=== PATIENT | female | born 1965 | race Caucasian/White ===

== ENCOUNTER 2017-10-04 06:34 | Emergency (ER) | payer OTHER ==
[~2017-10-04 06:34] MED LIST: ACAMPROSATE CA333 M1 PO; FOLIC ACID1 M1 PO; ONE DAILY MULT1 EAC2 PO; PERCOCET 325 MG1 TA2 PO; VITAMIN B-1100 MG PO; VOLTAREN100 GM TOP
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
[2017-10-04 07:26] LABS: ABSOLUTE BASOPHIL COUNT 0.1 /CUMM (0.0-0.2); ABSOLUTE EOSINOPHIL COUNT 0.2 /CUMM (0.0-0.7); ABSOLUTE GRANULOCYTE CT 1.8 /CUMM (1.4-6.5); ABSOLUTE LYMPH COUNT 1.7 /CUMM (1.2-3.4); ABSOLUTE MONOCYTE COUNT 0.6 /CUMM (0.10-0.60); BASOPHIL % 1.4 % (0.0-2.0); EOSINOPHIL % 4.9 % (0-5); GRANULOCYTE % 40.5 % (42.2-75.2); HEMATOCRIT 39.6 % (37-47); MEAN CORPUSCULAR HGB 32.8 PG (27.0-31.0); MEAN CORPUSCULAR HGB CONC 34.1 G/DL (33.0-37.0); MEAN CORPUSCULAR VOLUME 96.1 FL (81.0-99.0); MEAN PLATELET VOLUME 6.9 FL (7.4-10.4); PLATELET COUNT 176 /CUMM (130-400); RBC DISTRIBUTION WIDTH 14.7 % (11.5-14.5); RED BLOOD CELL CT 4.12 /CUMM (4.20-5.40); WHITE BLOOD CELL COUNT 4.3 /CUMM (4.8-10.8)
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
[2017-10-05 17:37] VITALS: BP 128/81
[2017-10-05] MEDS ORDERED: ATIVAN1 M1 PO (18:00)
[2017-10-05] MEDS ORDERED: MACROBID 100 M100 MG PO (18:05)
== END 2017-10-05 18:23 ==
LOC: ERH 06:34
PROVIDERS: Emergency Medicine
DX: F32.9 Major depressive disorder, single episode, unspecified (principal); F10.10 Alcohol abuse, uncomplicated
CPT/HCPCS: 80307; 81001; G0463; G0480

== ENCOUNTER 2017-10-29 21:43 | Emergency (ER) | payer OTHER ==
[~2017-10-29] VITALS: Ht 160 cm; Wt 60.3 kg
[~2017-10-29 21:43] MED LIST changes: +ATIVAN1 M1 PO; +MACROBID 100 M100 MG PO
--- NOTE | 2017-10-29 21:57 | ED AMS/SEIZURE/WEAK/DIZZY ---
History of Present Illness General Chief Complaint: ETOH/Drug Related Complaint Stated Complaint: BIBA +ETOH, DRUG USE ?COMBATIVE Source: patient Exam Limitations: no limitations Vital Signs & Intake/Output Vital Signs & Intake/Output Vital Signs Date Time Temp Pulse Resp B/P B/P Pulse O2 O2 Flow FiO2 Mean Ox Delivery Rate 10/30 1131 97.0 104 136/79 100 Room Air 10/30 1000 97.0 98 16 114/61 100 Room Air 10/30 0842 98.0 95 20 143/98 10/30 0622 97.8 93 20 107/64 96 Room Air 10/30 0350 99.3 79 15 98/57 97 Room Air 10/30 0040 99 18 105/62 99 Room Air 10/29 2224 Room Air 10/29 2152 98.7 101 16 121/73 96 Room Air ED Intake and Output 10/30 0000 10/29 1200 Intake Total 0 Output Total 0 Balance 0 Intake, Oral 0 Output, Urine 0 Patient 133 lb Weight Weight Reported by Patient Measurement Method Allergies Coded Allergies: No Known Allergies (12/27/16) Reconcile Medications LORazepam (Ativan) 1 MG TAB 2 TAB PO TID PRN ALCOHOL WITHDRAWAL DAY 1: 2 TAB 3X/DAY DAY 2: 1 TAB 4X/DAY DAY 3: 1 TAB 3X/DAY DAY 4: 1 TAB 2X/DAY DAY 5: 1 TAB Nitrofurantoin Monohyd/M-Cryst (Macrobid 100 MG Capsule) 100 MG CAPSULE 1 CAP PO BID uti with food Triage Note: [facility] FROM HOME. PER EMS BOYFRIEND CALLED BECAUSE PT DRANK A LITER OF VODKA AND HE WANTED HER TO BE EVALUATE. EMS ARRIVED AND PT WAS UNCOOPERATIVE AND SLURRING HER WORDS. EMS HAD TO RESTRAIN PT FOR HER SAFETY AND THEIRS BECAUSE PT WAS TRYING TO ELOPE AND WAS COMBATIVE AT TIMES. PT SLURRING HER WORDS BUT A&OX3 AT THIS TIME. PT DROWSY BUT AROUSABLE. PT CALM AT THIS TIMES AND EMS RESTRAINTS REMOVED. PT RESTING ON STRETCHER. PT DENIES SI/HI. PT C/O BLADDER PAIN BUT STATES SHE HAS A UTI. PT DENIES ANY OTHER COMPLAINTS. PT ON A PEER. PER [employer] PT ALSO TOOK 1MG OF BOYFRIEND'S CLONZEPAM. Triage Nurses Notes Reviewed? yes Onset: Gradual Duration: hour(s): Timing: recent history Injury Environment: home Severity: moderate Associated Symptoms: lethargy HPI: 52 yo woman h/o alcoholism presents after a concern for an overdose. The police share that she was trying to detox herself with her boyfriends benzos. Today, she relapsed, taking an unknown amount of clonazepam 1mg tabs as well as drinking an unknown amount of alcohol. Per the police, there were several empty bottles of liquor in the home. The police state that it was unclear if there was a intent for self-harm. No concern for injury. The patient presents quite somnolent, but arousable, not answering questions coherently. (Brenna MEDINA,Jon Vera) Past History Travel History Traveled to [place] past 21 day No Medical History Any Pertinent Medical History? 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 No (Brenna MEDINA,Jon Vera) Review of Systems Review of Systems Constitutional: Denies: see HPI. (Brenna MEDINA,Jon Vera) Physical Exam Physical Exam General Appearance: mild distress Comments: Review of Systems - except as otherwise noted in HPI Review of Systems Constitutional:no symptoms. EENTM:no symptoms. Respiratory:no symptoms. Cardiovascular:no symptoms. GI:no symptoms. Genitourinary:no symptoms. Musculoskeletal:no symptoms. Skin:no symptoms. Neurological/Psychological:no symptoms. Hematologic/Endocrine:no symptoms. Immunologic/Allergic:no symptoms. All Other Systems: Reviewed and Negative Physical Exam Physical Exam General Appearance: well developed/nourished, lethargic, easily arousable Head: atraumatic, normal appearance Eyes: Bilateral: normal appearance. Ears, Nose, Throat: normal pharynx, normal ENT inspection Neck: normal inspection, supple, full range of motion Respiratory: normal breath sounds, chest non-tender, no respiratory distress, quiet respiration, lungs clear Cardiovascular: regular rate/rhythm Gastrointestinal: normal bowel sounds, soft, non-tender, no organomegaly Back: normal inspection, normal range of motion Extremities: normal inspection, normal capillary refill, normal range of motion, no edema Neurologic/Psych: no motor/sensory deficits, lethargic easily arousable, speaks in complete sentences but with scattered throughts, slurred speech. Skin: intact, normal color, warm/dry Core Measures ACS in differential dx? No CVA/TIA Diagnosis No Sepsis Present: No Sepsis Focused Exam Completed? No (Brenna MEDINA,Jon Vera) Progress Differential Diagnosis: alcohol intoxication, benzo overdose vs other. Plan of Care: Orders Procedure Date/time Status Regular Diet 10/30 B Active Patient Safety Monitor 10/30 0847 Active Add-on Test (ER Only) 10/30 706 Active ACETOMINOPHEN 10/30 2219 Complete SALICYLATE 10/30 2219 Complete EKG 10/29 2212 Active Continuous Observation Monitor 10/29 2156 Complete URINE DRUG SCREEN FOR ER ONLY 10/29 2156 Complete ETHANOL 10/29 2156 Complete COMPREHENSIVE METABOLIC PANEL 10/29 2156 Complete CBC WITHOUT DIFFERENTIAL 10/29 2156 Complete ED CRISIS PSYCH CONSULT 10/29 2156 Active Laboratory Tests 10/30/17 0028: Urine Opiates Screen < 100, Methadone Screen 45, Barbiturate Screen < 60, Ur Phencyclidine Scrn < 6.00, Amphetamines Screen < 100, U Benzodiazepines Scrn > 800 H, Urine Cocaine Screen < 50, Urine Cannabis Screen 79.10 H 10/29/170: Anion Gap 15, Estimated GFR > 60, BUN/Creatinine Ratio 11.4, Glucose 108 H, Calcium 9.2, Total Bilirubin 0.3, AST 142 H, ALT 91 H, Alkaline Phosphatase 132 H, Total Protein 7.5, Albumin 4.2, Globulin 3.3, Albumin/Globulin Ratio 1.3 , CBC w Diff NO MAN DIFF REQ, RBC 4.25, MCV 96.3, MCH 32.5 H, MCHC 33.8, RDW 14.4, MPV 6.8 L, Gran % 39.6 L, Lymphocytes % 38.2, Monocytes % 15.1 H, Eosinophils % 6.6 H, Basophils % 0.5, Absolute Granulocytes 2.6, Absolute Lymphocytes 2.5, Absolute Monocytes 1.0 H, Absolute Eosinophils 0.4, Absolute Basophils 0, Salicylates < 1.0, Acetaminophen < 10.0 L, Serum Alcohol 374.0 Initial ED EKG: sinus, no acute changes Hand-Off Endorsed To: Ancelmo Okeefe DO Endorsed Time: 0700 Pending: consult, labs (Brenna MEDINA,Jon Vera) Departure Departure Disposition: STILL A PATIENT Condition: Stable Clinical Impression Primary Impression: Alcohol abuse Secondary Impressions: Benzodiazepine abuse, Overdose Referrals: Helen Cervantes MD (PCP/Family) Departure Forms: Customer Survey General Discharge Information Comments 10/30/17, 2:53am... pt resting comfortably.... labs benign, notable for etoh 374, uds +benzos... pt to be evaluated in the AM. pt to be signed out to dr. okeefe at 7am, 10/30/17 (Brenna MEDINA,Jon Vera) Departure Comments 10/30/17 12:33 PM Tylenol The patient was signed out to me by Dr. Ceja. She was seen evaluated and cleared by crisis. The recommendation was for an Ativan taper and she will follow-up at IOP. (Ancelmo Okeefe DO)
[2017-10-29 22:37] LABS: ABSOLUTE BASOPHIL COUNT 0 /CUMM (0.0-0.2); ABSOLUTE EOSINOPHIL COUNT 0.4 /CUMM (0.0-0.7); ABSOLUTE GRANULOCYTE CT 2.6 /CUMM (1.4-6.5); ABSOLUTE LYMPH COUNT 2.5 /CUMM (1.2-3.4); BASOPHIL % 0.5 % (0.0-2.0); EOSINOPHIL % 6.6 % (0-5); GRANULOCYTE % 39.6 % (42.2-75.2); HEMATOCRIT 40.9 % (37-47); MEAN CORPUSCULAR HGB 32.5 PG (27.0-31.0); MEAN CORPUSCULAR HGB CONC 33.8 G/DL (33.0-37.0); MEAN CORPUSCULAR VOLUME 96.3 FL (81.0-99.0); MEAN PLATELET VOLUME 6.8 FL (7.4-10.4); PLATELET COUNT 232 /CUMM (130-400); RBC DISTRIBUTION WIDTH 14.4 % (11.5-14.5); RED BLOOD CELL CT 4.25 /CUMM (4.20-5.40); WHITE BLOOD CELL COUNT 6.6 /CUMM (4.8-10.8)
[2017-10-30] MEDS ORDERED: ATIVAN1 M1 PO (12:38)
--- NOTE | 2017-10-30 12:42 | ED PSYCH CRISIS CONSULTATION ---
Crisis Consult Basic Assessment Date of Consult: 10/30/17 Responsible Person/Accompanied By: self/biba/peer Insurance Authorization: Insurance #1: Insurance name: BETTY STRICKLAND Phone number: Policy number: [id number] Group number: Authorization number: ED Provider: Patient's ED Provider: Brenna MEDINA,Jon Vera Primary Care Physician: Patient's PCP: Helen Cervantes MD PCP's Current Psychiatrist: none Chief Complaint: ETOH/Drug Related Complaint Patient's Quote: I tried to detox at home and i drank instead Present Illness: pt is a 52 yo female biba last evening to [facility] on a [facility] PEER. PEER documents pt drank 1 liter of vodka with 1mg of bfs klonopin and marijuana. PT BAL: 374. Pt has a long hx of etoh abuse and was seen last at [facility] on October 04 with plan to discharge to IOP intake. Pt reports that she didn't attend because she relapsed but has recently attempted detox last week at [facility]. Pt reports she left [facility] prematurely because she was frightened by the other pts. Pt reports attempting to detox on her own on this weekend but couldn't tolerate the withdrawals and drank again. Pt reports wanting to detox but is additionally concerned by potential of losing her housing and having housing authority come to her apartment for an inspection. Pt wants to go home and clean. Pt denies SI/ HI/AH/VH. Pt reports she was involved this winter at [facility] and did well but is not currently in treatment. Pt has a hx of multiple detox/rehab placements. Pt reports interest in IOP level of care. Pt presents as pleasantly anxious; tremulous, cooperative and OX3. Case reviewed with Dr Arango. Recommendation for IOP treatment. Pt in agreement with plan and is scheduled for a IOP 11/01 at 9:30am. Plan also discussed with pt bf and he reports committment to getting pt to her IOP intake. Pt discharged home with boyfriend. Patient's Address: [address] [place] [address] Other Phone Number: Who Do You Live With? Patient/Self Family/Informants Interviewed: collateral provided by pt brother Korey and Kelechi [phone]. Both express concerns regarding pt's drinking and need to accept treatment. Allergies - Coded Allergies: No Known Allergies (12/27/16) Current Medications - Scheduled Medications LORazepam (Ativan) 1 MG TAB 1 TAB PO DAILY ALCOHOL WITHDRAWL #19 TAB Prescribed by Ancelmo Okeefe DO on 10/30/17 Laboratory Results: Laboratory Tests 10/30/17 0028: Urine Opiates Screen < 100, Methadone Screen 45, Barbiturate Screen < 60, Ur Phencyclidine Scrn < 6.00, Amphetamines Screen < 100, U Benzodiazepines Scrn > 800 H, Urine Cocaine Screen < 50, Urine Cannabis Screen 79.10 H 10/29/17 2220: Anion Gap 15, Estimated GFR > 60, BUN/Creatinine Ratio 11.4, Glucose 108 H, Calcium 9.2, Total Bilirubin 0.3, AST 142 H, ALT 91 H, Alkaline Phosphatase 132 H, Total Protein 7.5, Albumin 4.2, Globulin 3.3, Albumin/Globulin Ratio 1.3 , CBC w Diff NO MAN DIFF REQ, RBC 4.25, MCV 96.3, MCH 32.5 H, MCHC 33.8, RDW 14.4, MPV 6.8 L, Gran % 39.6 L, Lymphocytes % 38.2, Monocytes % 15.1 H, Eosinophils % 6.6 H, Basophils % 0.5, Absolute Granulocytes 2.6, Absolute Lymphocytes 2.5, Absolute Monocytes 1.0 H, Absolute Eosinophils 0.4, Absolute Basophils 0, Salicylates < 1.0, Acetaminophen < 10.0 L, Serum Alcohol 374.0 Past History Past Medical History Neurological: TBI EENT: NONE Cardiovascular: NONE Respiratory: NONE Gastrointestinal: alcoholic hepatitis Hepatic: ALCOHOLIC HEP Renal: NONE Musculoskeletal: chronic back pain Psychiatric: alcohol dependence Endocrine: NONE Blood Disorders: NONE 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 Physical Limitations (Interventions): Chronic pattern of relapse Psychiatric Treatment History Psych Treatment Psychiatric Treatment Yes Inpatient Treatment No Outpatient Treatment Yes Location of Treatment hx of tx with Care - no current provider Reason for Treatment etoh and depression Dates of Treatment winter 2017 Response to Treatment pt reports doing well for a short period of time but relapsed two months ago. Diagnosis by History: etoh dependence Substance Use/Abuse History Drug Use/Abuse Substances Used/Abused Yes Substance Used/Abused Alcohol Last Used yesterday How much used/taken undetermined How often daily For how long pt reports brief detox last week at [facility] but discharging herself premature Substance Abuse Treatment Substance Abuse Treatment Past Substance Abuse TX Yes Inpatient Treatment Yes Outpatient Treatment Yes Location of Treatment [facility] Reason for Treatment etoh Dates of Treatment recent detox attempt last week at [facility] Response to Treatment pt having inability to stop etoh use despite increased health and psychosocial concerns Current Mental Status Mental Status Orientation: Person, Place, Situation Affect: Anxious Speech: WNL Neuro-vegetative: Helpless, Sleep Disturbance Appearance Appearance- Dress/Hygiene: hospital scrubs; disheveled; tremulous; cooperative Behaviors Thought Process: WNL Thought Content: WNL Memory: WNL Insight: Fair SI/HI Risk Assessment Past Suicidal Ideation/Attempts No Current Suicidal Ideation/Att No Past Homicidal Ideation/Att: No Current Homicidal Ideation/Attempts No Degree of Intent: None Gravely Disabled: Poor Impulse Control, Poor Judgment Risk Factors: high anxiety/distress, SA/MH hospitalized, substance abuse, lives alone, limited support Lethality Ratin PTSD Checklist PTSD Done? patient declined ED Management Sitter: Yes Restraints: No DSM5/PS Stressors/Medical Prob Diagnosis' (DSM 5, Stressors, Medical): Alcohol Use D/O F 10.20 Unspecified Depression F32.9 chronic relapse housing Current GAF: 35 Comments: pt reports wanting to stop drinking but doesn't want to go to a detox because she has an appointment with housing authority who need to inspect her apt in the next few days Departure Disposition Psych Medical Clearance Date: 10/30/17 Medically Cleared at: 1145 Time Started: 1145 Time Ended: 1230 Psychiatrist Consulted: Jon Arango MD Date Disposition Established: 10/30/17 Time Disposition Established: 124 Plan for Disposition - Modality: IOP Facility: [facility] Follow-up Appt Date: 11/01/17 Follow-Up Appt Time: 929 Rationale for Disposition: mood stabilization; etoh recovery; medication management Additional Instructions: pt discharged with an ativan taper by Dr Okeefe. Referrals Helen Cervantes MD (PCP/Family)
[2017-10-30 12:50] VITALS: BP 138/80
== END 2017-10-30 13:13 ==
LOC: ERH 21:43
PROVIDERS: Pediatrics
DX: T42.4X4A Poisoning by benzodiazepines, undetermined, initial encounter (principal); F10.10 Alcohol abuse, uncomplicated
CPT/HCPCS: 80307; 93005; 93010; 96372; G0463; G0480; J1630